=== PATIENT | female | born 1970 | race Caucasian/White ===

== ENCOUNTER 2019-10-24 08:00 | Outpatient (RCR) | payer BC, SELFPAY ==
--- NOTE | 2019-09-06 15:08 | HP.OTEVAL ---
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 Date of Evaluation: 09/06/19 Occupational Therapist: Doreen Victor, OTR/L - Subjective Subjective: Arrived and noted that she has been experiencing increased CMC pain since January. She noted she has recieved one cortisone injection in January and a second injection was last thursday. 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 She noted she does yoga freqently but has to adapt poses frequently to manage thumb pain. - ADLs Dressing: Bra, Button shirt, Pants, Socks, Shoes Fasteners: Buttons, Zippers, [place] Eating: Use silverware, Cut food Bathing: Handle washcloth & soap, Squeeze shampoo bottle Toileting: Manage clothing Grooming: Shave, Curling iron, Comb hair, Put on makeup Kitchen: Chop with knife, Peel fruits & vegetables, Open jars, Open bottle caps, Ziplock bags, Lift gallon of milk, Pour from pitcher, Lift saucepan, Take dish out of oven Household: Vacuum, Sweep/mop, Laundry Miscellaneous: Use cell phone, Unlock front door, Start car, Open medication bottle, Hold change, Take things out of wallet, Write, Turn pages in book, Do crafts, Drive Comments: typing Comments: Jarod is R hand dominant. - Pain R CMC 0 Pain Intensity Range: 0, 8 - Objective Concerns: due to work schedule will atiya complet 2x weekly appointment for the next 4 weeks only. - ROM Wrist: flexion R 0-79, L WFL ; ext R 0-50, L WFL CMC: R 0-29, L WFL MP: R 0-35, L WFL IP: R 0-85, L WFL Radial Abduction: R 0-45, L WFL MP: WFL PIP: WFL DIP: WFL - Strength Central Control Room Operator: R 55, L 59 Lateral Pinch: R 8, L 10 Tripod Pinch: R 6, L 8 Tip-to-Tip Pinch: R 2, L 5- increased pain on R thumb with movements. - Sensation Sensation Comments: denies numbnes of tingling. - Nine Hole Peg Right: 17. 80 s Left: 16.81 s - Quick DASH-Disab of Arm,Shoulder& Hand Quick DASH Score: 35.5250 - Goals Goal:: Jardo to increased R stripper soft plastic by 15 lbs to promote increased strength and stability of R thumb for ADL/IADls by d/c. Goal:: Jarod to be (i) to complete pain management methods to decrease pain in R thumb 4/5 trials 80% of the time by d/c. Goal:: Jarod to be (i) to complete correct ergonomic set up and joint protection methods for CMC of R thumb to decrease pain and discomfort when home and at the office 4/5 trials 80% of the time by d/c. Goal:: Jarod to be mod I to completed all ADL/IADLs including cutting food, opening jars, and staring car with minimal to no pain in R CMC 4/5t rials 80% of the time by d/c. Goal:: Jarod to complete daily HEP to promote increased strength and stability of R thumb 4/5 trials 80% of the time to decrease pain and promote increased fx by d/c. - Rehabilitation General Assessment: Jarod completed OT evaluation on this date of 09/06/19. 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 She notes increased apinw ith all resistance movements. Increased edema noted throughout the thenar eminence. Jarod to complete 2x weekly treatments for the next 4-6 weeks to promote increased stability, strength,a nd function of R thumb and CMC. Rehabilitation Potential: Good - Anticipated Interventions Anticipated Interventions: A/AAROM/PROM, Strengthening, Edema Control, Triggerpoint Release, Desensitization, Modalities, Orthoses, Joint Protection/Energy Conservation, Ergonomic Education, Dynamic Sitting Balance, Fine Motor Coord/Edmundo, ADL Training, Caregiver Training, Home Program - Visit Plan Frequency: 2-3x /Week Duration: 4-6 Weeks General Plan: Jarod to completed 2x weekly OT treatement to promote increased ROM, strength, stability, ergonomic training, and general ADL/IALDs. TEXT: Thank you for the opportunity to evaluate your patient. For Medicare and Medicare HMO plans, please review the plan of care and approve it. It will need to be FAXED BACK to us at [phone] for Medicare purposes. Please let me know if there are questions or concerns regarding this plan of care. Physician Signature: Date:
--- NOTE | 2019-10-10 09:22 | OTREVAL_ITS ---
Bart Jay MD, It has been my pleasure to treat JAROD MARIE over the last 10 visits for Unilateral 1st CMC Pain. Please see the progress note below for an update on the occupational therapy plan of care! Subjective: Arrived and noted that everything is going ok. She noted that she cleaned out laundry room. She noted mild achiness but no pain. She feels she is 50%. Objective/Function: Completed reassessment on this date of 10/10/19 and measurements as follows: ROM: thumb. - opposition R 0-29, l WFL. - radial adduction R 0-77, L WFL. - IP R 0-77, L WFL. - MP R 0-47- hyper extension noted with tension, L WFL. Strength: - chief administrative officer R 52, L 53. - lateral pinch R 16, L 13. - tripod R 18, L 14. - pincer R 8, L 10. Hyperextension noted with tension at MP. Plan Frequency: 1x/Week Duration: 2 Weeks Visits in this POC: 12 Plan: continue POC for 1x weekly appointmetn for the next two weeks. Working on getting an oval 8 for R thumb to prevent MP from collapsing. Low profile CMC brace is working for yoga. Doing well. Goals - Goals Goal:: Jarod to increased R chief administrative officer by 15 lbs to promote increased strength and stability of R thumb for ADL/IADls by d/c. Goal:: Jarod to be (i) to complete pain management methods to decrease pain in R thumb 4/5 trials 80% of the time by d/c. Goal:: Jarod to be (i) to complete correct ergonomic set up and joint protection methods for CMC of R thumb to decrease pain and discomfort when home and at the office 4/5 trials 80% of the time by d/c. Goal:: Jarod to be mod I to completed all ADL/IADLs including cutting food, opening jars, and staring car with minimal to no pain in R CMC 4/5t rials 80% of the time by d/c. Goal:: Jarod to complete daily HEP to promote increased strength and stability of R thumb 4/5 trials 80% of the time to decrease pain and promote increased fx by d/c. Anticipated Interventions Anticipated Interventions: A/AAROM/PROM, Strengthening, Edema Control, Triggerpoint Release, Desensitization, Modalities, Orthoses, Joint Protection/Energy Conservation, Ergonomic Education, Dynamic Sitting Balance, Fine Motor Coord/Edmundo, ADL Training, Caregiver Training, Home Program Please do not hesitate to contact me at [phone] by phone or if you have questions or concerns regarding this new plan of care! Sincerely, Doreen Victor, OTR/L
--- NOTE | 2019-11-08 10:49 | HP.OTDCSUM ---
HP - OT D/C Summary It has been my pleasure to treat JENNY MARIE under orders from Bart Jay MD, for the diagnosis of Unilateral 1st CMC Pain for a total of 12 visit(s). Please see the following information for a summary of their discharge status. - Overall Improvement % Improvement: 80 - Objective Objective/Function: Completed reassessment 10/24/19: ROM: - thumb: WFL. Strength: - middleware consultant R 61, L 57. - lateral pinch R 18, L 15. - tripod R 16, L 15. Hyperextension noted with tension at MP. - Goals Patient Goals: Regain Mobility, Regain Strength, Decrease Pain, Return to Work, Decrease Swelling/Stiffness, Improve Fine Motor Skills, Use Hand/Wrist/Arm Normally Again, Increase ROM, Be More Independent in ADLS, Resume Former Household Responsibilities (Cooking,Cleaning,Yard, etc.), Resume Hobbies Goal:: Jenny to increased R middleware consultant by 15 lbs to promote increased strength and stability of R thumb for ADL/IADls by d/c. Goal:: Jenny to be (i) to complete pain management methods to decrease pain in R thumb 4/5 trials 80% of the time by d/c. Goal:: Jenny to be (i) to complete correct ergonomic set up and joint protection methods for CMC of R thumb to decrease pain and discomfort when home and at the office 4/5 trials 80% of the time by d/c. Goal:: Jenny to be mod I to completed all ADL/IADLs including cutting food, opening jars, and staring car with minimal to no pain in R CMC 4/5t rials 80% of the time by d/c. Goal:: Jenny to complete daily HEP to promote increased strength and stability of R thumb 4/5 trials 80% of the time to decrease pain and promote increased fx by d/c. - Plan Plan: She will be d/c'd as doing well; still achy around thumb but able to manage symptoms. - D/C Information If there are questions or concerns regarding this patient's occupational therapy, please fell free to call me at [phone]. Thank you for the referral of this patient. Sincerely, Doreen Victor, OTR/L
== END 2019-10-24 19:00 | disposition home or self-care (01) ==
LOC: OT 08:00
PROVIDERS: Family Provider Student in an Organized Health Care Education/Training Program; PCP Student in an Organized Health Care Education/Training Program; Referring Provider Orthopaedic Surgery; Visit Provider Orthopaedic Surgery
DX: M18.11 Unilateral primary osteoarthritis of first carpometacarpal joint, right hand (principal)
CPT/HCPCS: 97110; 97140; 97166; 97168; 97530; 97760

== ENCOUNTER 2021-02-07 13:40 | Outpatient (RCR) | payer BC, SELFPAY ==
[2016-01-10 09:48] VITALS: BMI 19.8
== END 2021-03-19 23:59 ==
LOC: IMMUN 13:40
PROVIDERS: PCP Student in an Organized Health Care Education/Training Program; Referring Provider Family Medicine; Visit Provider Family Medicine
DX: Z23 Encounter for immunization (principal)
CPT/HCPCS: 0001A; 0002A; 91300

== ENCOUNTER → 2021-05-20 13:29 | Outpatient (CLI) | payer BC, SELFPAY ==
[2016-01-10 09:48] VITALS: BMI 19.8
--- NOTE | 2021-05-20 13:32 | RAD_ITS ---
STUDY: X-RAY - CERVICAL SPINE REASON FOR EXAM: Female, 51 years old. Neck pain. TECHNIQUE: 3 view(s) of the cervical spine were obtained. COMPARISON: None FINDINGS: Normal anterior atlantoaxial articulation. Normal odontoid process. Reversal of the normal lordotic curve, likely positional. Normal vertebral bodies and endplates. Diffuse moderate uncovertebral and facet sclerosis. Intervertebral disc space narrowing diffusely, most marked at C4-5, C5-6, C6-7 and C7-T1 with osteophyte formation most marked at C5-6 and C6-7. The soft tissue structures are unremarkable. RAD/Cerv Spine 2 or 3 Views IMPRESSION: Reversal of the normal lordotic curvature, likely positional. Diffuse cervical spondylosis most marked at C5-6 and C6-7. No acute abnormality. Electronically Signed: Avtar Maciel MD at 9:23 EDT , Service support ,
== END ==
PROVIDERS: PCP Student in an Organized Health Care Education/Training Program; Referring Provider Anesthesiology Pain Medicine; Visit Provider Anesthesiology Pain Medicine
DX: M54.2 Cervicalgia (principal)
CPT/HCPCS: 72040

== ENCOUNTER 2024-04-07 12:53 | Outpatient (RCR) | payer SELFPAY | END 2024-04-07 19:00 | disposition home or self-care (01) | LOC: PT 12:53 | PROVIDERS: PCP Student in an Organized Health Care Education/Training Program | DX: M25.519 Pain in unspecified shoulder (principal) ==